=== PATIENT | female | born 1985 | race Caucasian/White ===

== ENCOUNTER 2016-08-06 20:01 | Outpatient (CLI) | payer MEDICAID ==
[~2016-08-06 20:01] MED LIST: BUTA1CAP51 PO; DOXY1TAB3 PO; HYDR-4246 PO; OMEP20CA10 PO; ONDA4TAB7 PO; PREN1TAB73 PO; PROM25TA7 PO
[2016-08-06] MEDS ORDERED: [UNRECOGNIZED DRUG - OTHER] IV ONE (20:15)
[2016-08-06] MEDS ORDERED: D5LR IV ONE (20:15)
[2016-08-06 20:51] LABS: HCT - HEMATOCRIT 33.2 % (36-46); HGB - HEMOGLOBIN 11.4 GM/DL (12-16); MEAN CORPUSCULAR HGB 32.7 UUG (26-34); MEAN CORPUSCULAR HGB CONC(MCHC 34.3 GM/DL (31-37); MEAN CORPUSCULAR VOLUME 95.1 UM3 (80-100); MEAN PLATELET VOLUME 9.3 UM3 (9.4-12.4); RED BLOOD COUNT 3.49 M/MM3 (4.00-5.20); WBC - WHITE BLOOD COUNT 11.3 T/MM3 (4.5-11.0)
[2016-08-06 20:57] LABS: ALBUMIN 3.4 G/DL (3.5-5.0); ALBUMIN/GLOBULIN RATIO 1.1 RATIO (1.1-2.2); ALKALINE PHOSPHATASE 187 U/L (38-126); ALT (SGPT) 32 U/L (9-52); ANION GAP 11 MEQ/L (5-15); AST (SGOT) 14 U/L (14-36); BUN/CREATININE RATIO 12 RATIO (6-26); CALCIUM 9.1 MG/DL (8.4-10.2); CHLORIDE 106 MEQ/L (98-107); CO2 - CARBON DIOXIDE 21 MEQ/L (22-30); CREATININE 0.6 MG/DL (0.7-1.2); GLOMERULAR FILTRATION RATE 117; GLUCOSE 88 MG/DL (65-110); POTASSIUM 3.9 MEQ/L (3.6-5); SODIUM 138 MEQ/L (134-144); TOTAL PROTEIN 6.5 G/DL (6.3-8.2)
[2016-08-06 21:05] LABS: BLOOD, URINE TRACE-INTACT (NEGATIVE); COLOR,URINE YELLOW (YELLOW); LEUKOCYTE ESTERASE ,URINE NEGATIVE (NEGATIVE); NITRITE,URINE NEGATIVE (NEGATIVE); UROBILINOGEN,URINE 0.2 EU/DL (NORMAL)
[2016-08-06] MEDS: DimenhyDRINATE 50 MG in LR 1,000 ML IV SCH ×2 (21:05→21:06)
[2016-08-06] MEDS ORDERED: BUTALBITAL/APAP/CAFFEINE TABLET PO ONE (23:15)
== END 2016-08-07 00:35 | disposition home or self-care (01) ==
LOC: OBOBS 20:01 → MC 20:03 → OBOBS 20:03
PROVIDERS: ATTEND Obstetrics & Gynecology
DX: O21.0 Mild hyperemesis gravidarum (principal); Z3A.35 35 weeks gestation of pregnancy
CPT/HCPCS: 36415; 59025; 80053; 81003; 85027; 96361; 96365; J1240; J7120

== ENCOUNTER 2016-08-15 12:45 | Outpatient (CLI) | payer MEDICAID ==
[~2016-08-15] VITALS: Ht 177.8 cm; Wt 101.4 kg
[2016-08-15] MEDS ORDERED: LR 1,000 ML IV ONE (13:01)
--- NOTE | 2016-08-15 13:03 | PNPDOC ---
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 Spotting. No LOF. Good FM. Nausea is unchanged. Having some diarrhea today. Objective Objective Comments Cvx 1-2/60/-3 [place]- irritability FHT 140, accels, mod siva Assessment Comments Will give her a liter of fluids. Check UA. She already took Benadryl prior to coming in. She has a h/o 34 wk delivery. LISBET SALDIVAR MD August 15, 2016 13:03
[2016-08-15] MEDS ORDERED: ACETAMINOPHEN 500 MG TABLET PO PRN (13:15)
[2016-08-15 13:21] LABS: BLOOD, URINE NEGATIVE (NEGATIVE); COLOR,URINE YELLOW (YELLOW); LEUKOCYTE ESTERASE ,URINE NEGATIVE (NEGATIVE); NITRITE,URINE NEGATIVE (NEGATIVE); UROBILINOGEN,URINE 0.2 EU/DL (NORMAL)
[2016-08-15 13:36] VITALS: TEMP 97.9
[2016-08-15 13:47] VITALS: Ht 177.8 cm; Wt 101.4 kg
[2016-08-15] MEDS ORDERED: TERBUTALINE 1 MG/ML INJECTION SQ ONE (14:45)
[2016-08-15] MEDS ORDERED: DiphenhydrAMINE 25 MG CAPSULE PO ONE (16:00)
== END 2016-08-15 16:18 | disposition home or self-care (01) ==
LOC: OBOBS 12:45 → MC 12:45 → OBOBS 16:18
PROVIDERS: ATTEND Obstetrics & Gynecology
DX: O47.03 False labor before 37 completed weeks of gestation, third trimester (principal); O26.853 Spotting complicating pregnancy, third trimester; Z3A.36 36 weeks gestation of pregnancy
CPT/HCPCS: 59025; 81003; J3105; J7120

== ENCOUNTER 2016-08-19 17:43 | Outpatient (CLI) | payer MEDICAID | END 2016-08-19 18:19 | disposition home or self-care (01) | LOC: MC 17:43 → OBOBS 17:43 | PROVIDERS: ATTEND Obstetrics & Gynecology | DX: O26.893 Other specified pregnancy related conditions, third trimester (principal); N89.8 Other specified noninflammatory disorders of vagina; Z3A.37 37 weeks gestation of pregnancy | CPT/HCPCS: 84112 ==

== ENCOUNTER 2016-08-31 03:15 | Inpatient (IN) | payer BC, MEDICAID ==
[~2016-08-31] VITALS: Ht 177.8 cm; Wt 99.3 kg
[~2016-08-31 03:15] MED LIST changes: -HYDR-4246 PO
[2016-08-31] MEDS ORDERED: LR 1,000 ML IV PRN (04:34)
--- OUTSIDE RECORDS SUMMARY | 2016-08-31 04:36 | XMS REPORT | Continuity of Care Document ---
Author Author [facility]AS [facility] Organization [facility] Address Unknown Phone Unavailable Care Team Providers Care Ballet Teacher Name Role Phone DIONICIO SEGUNDO MD Primary Care Physician [phone] Insurance Providers Guarantor Nancy Strong [address] [place] [address] Email [email or web address] [email or web address] [facility] [place] Plan Policy Number [id number] Subscriber's Name TaeNancy Carter Relationship 18 Self Effective Date 16 Expiration Date 16 Advance Directives Directive Response Recorded Date/Time Advanced Directives Type None 10/10/13 4:23am Ordered Resuscitation Status Full Code 07/12/13 10:54am Resuscitation Documents on File No 10/10/13 4:23am Problems Active Problems Medical Problem Onset Date Status Bradycardia Unknown Resolved Dehydration Unknown Acute Ectopic , tubal Unknown Acute Headache Unknown Acute Hypotension Unknown Resolved Intractable migraine without aura Unknown Migraine Unknown Acute Migraine Unknown Nausea & vomiting Unknown Palpitations Unknown Resolved with 13 completed weeks gestation Unknown with abdominal pain of right lower quadrant, antepartum Unknown Acute Supervision of other normal 10/12/2013 Acute Syncope and collapse Unknown Resolved Thoracic back pain Unknown Acute Vomiting Unknown Acute nausea vomiting of Unknown Acute Surgical Problem Onset Date Status Status post laparoscopy Unknown Acute Past Problems Medical Problem Onset Date Migraine Unknown Migraine equivalent Unknown Nausea & vomiting Unknown Vertigo Unknown Medications Current Home Medications Medication Dose Units Route Directions Days Qty Instructions Start Date Butalb/Acetaminophen/Caffeine (Ktinwi-Soywcbbd-Udaa 50-300-40) 1 Each Capsule 1 Tab Oral As Needed 12/11/15 Doxylamine/Pyridoxine Hcl (Dicena Montalvo 10-10 Mg Tablet) 1 Each Tablet. 1 Tab Oral Bedtime 03/04/16 Hydrocodone/Acetaminophen ([place] 5-325 Tablet) 5-325 Tablet 1-2 Tab Oral Every 4 Hours as needed for Pain 30 Tablet 03/06/16 Omeprazole 20 Mg Capsule. 20 Mg Oral Bedtime Take 1 capsule, by mouth, one time a day (before breakfast). 03/04/16 Ondansetron (Zofran Odt) 4 Mg Tab.rapdis 4 Mg Oral Every 4 Hours Oral Disintegrating Tablet 03/04/16 Pnv95/Ferrous Fumarate/Fa ( Tablet) 1 Each Tablet 1 Tab Oral Daily 90 Tablet 03/04/16 Promethazine Hcl 25 Mg Tablet 25 Mg Oral Every 6 Hours as needed for Nausea 40 03/06/16 Past Home Medications Medication Directions Ordered Status Alprazolam 0.5 Mg Tablet, 0.5 Mg Oral As Needed 12/11/15 Discontinued Doxylamine Succinate (Unisom) 25 Mg Tablet, 25 Mg [place] As Needed for Nausea 07/12/13 Discontinued Hydrocodone Bit/Acetaminophen (Lortab 5) 1 Tab Tablet, 1 Tab Oral for Pain Discontinued Naproxen Sodium (Aleve) 220 Mg Tablet, 220 Mg Oral Twice Daily With Meals as needed for Pain 10/12/13 Discontinued Ondansetron (Ondansetron Odt) 4 Mg/Tab Tab.rapdis, 02/23/13 Discontinued Oxycodone Hcl/Acetaminophen (Percocet 5/325 Tab) 1 Tab Tablet, 1-2 Tab Oral Every 4 Hours as needed for Pain 10/12/13 Discontinued Progesterone,Micronized (Progesterone) 200 Mg Capsule, 250 Mg Intramusc 1 Week as needed for See Comments Below 07/12/13 Discontinued Pyridoxine Hcl (Vitamin B6) 50 Mg Tablet, 50 Mg Oral As Needed for Nausea 11/17 Discontinued Social History Social History Problem Response Recorded Date/Time Onset Date Status Hx Substance Use No 12/11/2015 4:45pm Not Applicable Not Applicable Hx Alcohol Use Y RARELY 12/11/2015 4:45pm Not Applicable Not Applicable Has the pt used tobacco in the last 12 months No 04/07/2016 3:53pm Not Applicable Not Applicable Tobacco Usage none 06/16/2014 2:38pm Not Applicable Not Applicable Query Response Start Date Stop Date Smoking Status Former smoker Hospital Discharge Instructions No hospital discharge instructions. Plan of Care Discharge Date 04/25/16 6:25pm Prescriptions See Medication Section Functional Status No functional status results. Allergies, Adverse Reactions, Alerts Allergen Type Severity Reaction Status Last Updated amoxicillin trihydrate Allergy Unknown HIVES Active 01/29/16 Penicillin Allergy Unknown RESP Active 01/29/16 Ibuprofen Allergy Unknown RESP, HIVES Active 01/29/16 potassium clavulanate Allergy Unknown HIVES Active 01/29/16 Immunizations Query Response on File Recorded Date/Time Hx Influenza Vaccination Y fall 201504/07/16 3:53pm Hx Pneumococcal Vaccination No 04/07/16 3:53pm Hx Influenza Vaccination Y fall 201504/07/16 3:53pm DTaP Vaccine History UNK 12/11/15 4:45pm Influenza Vaccine Hx 01/1903/05/16 12:27pm Vital Signs Acute Vital Signs Vital Response Date/Time Temperature (Fahrenheit) 97.2 deg F (96.8 - 99.1) 04/25/2016 4:52pm Temperature (Calculated Celsius) 36.89611 degrees C (36.0 - 37.3) 04/25/2016 4:52pm Pulse Rate (adult) 86 bpm (60 - 100) 04/25/2016 4:52pm Respiratory Rate 16 breaths/min (10 - 20) 04/25/2016 4:52pm O2 Sat by Pulse Oximetry 100 % (90 - 100) 04/25/2016 4:52pm Oxygen Delivery Method Room Air 04/25/2016 4:52pm Blood Pressure 105/51 mm Hg 04/25/2016 4:52pm Blood Pressure Source Automatic Cuff 04/25/2016 4:52pm Height (Feet) 5 feet 04/07/2016 4:40pm Height (Inches) 10.00 inches 04/07/2016 4:40pm Weight (Kilograms) 94.500 kg 04/07/2016 4:40pm Body Mass Index (BMI) 29.9 04/07/2016 4:40pm Results Laboratory Results Test Name Result Units Flags Reference Collection Date/Time Result Date/ Time Comments Magnesium Level 2.0 MG/DL 1.6-2.3 03/06/2016 7:01am 03/06/2016 7:31am Urine Collection Type CLEANCATCH-MIDSTREAM 2016 2:42pm 2015 3:23pm Urine Amorphous Urates MANY 2016 2:42pm 2016 3:32pm Urine Mucus PRESENT 2016 2:42pm 2016 3:32pm Urine Hyaline Casts 0-1 /LPF 2016 2:42pm 2016 3:32pm White Blood Count 14.5 T/MM3 H 4.5-11.0 04/07/2016 4:26pm 04/07/2016 4: 46pm Red Blood Count 3.75 M/MM3 L 4.00-5.20 04/07/2016 4:pm 04/07/2016 4: 46pm Hemoglobin 12.3 GM/DL 12-16 04/07/2016 4:pm 04/07/2016 4:46pm Hematocrit 35.6 % L 36-46 04/07/2016 4:pm 04/07/2016 4:46pm Mean Corpuscular Volume 94.9 UM3 80-100 04/07/2016 4:pm 04/07/2016 4: 46pm Mean Corpuscular Hemoglobin 32.8 UUG 26-34 04/07/2016 4:pm 2016 4:46pm Mean Corpuscular Hemoglobin Concent 34.6 GM/DL 31-37 04/07/2016 4:pm 04/07/2016 4:46pm RDW Standard Deviation 41.5 FL 36.9-50.2 04/07/2016 4:04/07/2016 4 :46pm Platelet Count 336 T/MM3 130-400 04/07/2016 4:04/07/2016 4:46pm Mean Platelet Volume 9.6 UM3 9.4-12.4 04/07/2016 4:pm 04/07/2016 4: 46pm Neutrophils (%) (Auto) 79.1 % H 33-66 04/07/2016 4:pm 04/07/2016 4: 46pm Lymphocytes (%) (Auto) 15.8 % L 23-45 04/07/2016 4:pm 04/07/2016 4: 46pm Monocytes (%) (Auto) 4.0 % 0-9.0 04/07/2016 4:04/07/2016 4:46pm Eosinophils (%) (Auto) 0.7 % 0-4 04/07/2016 4:pm 04/07/2016 4:46pm Basophils (%) (Auto) 0.1 % 0-2 04/07/2016 4:04/07/2016 4:46pm Immature Granulocyte % (Auto) 0.3 % 0.0-0.5 04/07/2016 4:2016 4:46pm Absolute Neutrophils (auto) 11.5 T/MM3 H 1.8-7.7 04/07/2016 4:pm 04/07 4:46pm Absolute Lymphocytes (auto) 2.3 T/MM3 1-4.8 04/07/2016 4:pm 2016 4:46pm Absolute Monocytes (auto) 0.6 T/MM3 0-0.8 04/07/2016 4:26pm 04/07/2016 4:46pm Absolute Eosinophils (auto) 0.1 T/MM3 0-0.5 04/07/2016 4:pm 2016 4:46pm Absolute Basophils (auto) 0.0 T/MM3 0-0.2 04/07/2016 4:pm 04/07/2016 4:46pm Absolute Immature Granulocyte (auto 0.04 T/MM3 H 0.00-0.03 04/07/2016 4: pm 04/07/2016 4:46pm Icterus Index < 2 0-7 04/07/2016 4:04/07/2016 4:57pm Chemistry Specimen Hemolysis < 15 0-25 04/07/2016 4:pm 04/07/2016 4 :57pm 0-25: Specimen Exhibited No Hemolysis. Turbidity < 20 0-20 04/07/2016 4:pm 04/07/2016 4:57pm Sodium Level 138 MEQ/L 134-144 04/07/2016 4:pm 04/07/2016 4:57pm Potassium Level 4.0 MEQ/L 3.6-5 04/07/2016 4:26pm 04/07/2016 4:57pm Chloride Level 104 MEQ/L 98-107 04/07/2016 4:pm 04/07/2016 4:57pm Carbon Dioxide Level 25 MEQ/L 22-30 04/07/2016 4:04/07/2016 4: 57pm Anion Gap 9 MEQ/L 5-15 04/07/2016 4:04/07/2016 4:57pm Blood Urea Nitrogen 12.0 MG/DL 7-17 04/07/2016 4:04/07/2016 4: 57pm Creatinine 0.7 MG/DL 0.7-1.2 04/07/2016 4:04/07/2016 4:57pm BUN/Creatinine Ratio 17 RATIO 6-04/07/2016 4:04/07/2016 4:57pm Glomerular Filtration Rate Calc 98 04/07/2016 4:pm 04/07/2016 4: 57pm Glucose Level 85 MG/DL 65-110 04/07/2016 4:04/07/2016 4:57pm Calculated Osmolality 265 MOSM/KG 261-280 04/07/2016 4:04/07/2016 4:57pm Calcium Level 9.8 MG/DL 8.4-10.2 04/07/2016 4:04/07/2016 4:57pm Total Bilirubin 0.50 MG/DL 0.20-1.30 04/07/2016 4:pm 04/07/2016 4: 57pm Alkaline Phosphatase 75 U/L 38-126 04/07/2016 4:04/07/2016 4:57pm Total Protein 6.8 G/DL 6.3-8.2 04/07/2016 4:04/07/2016 4:57pm Albumin 3.7 G/DL 3.5-5.0 04/07/2016 4:04/07/2016 4:57pm Globulin 3.1 G/DL 2.4-3.6 04/07/2016 4:04/07/2016 4:57pm Albumin/Globulin Ratio 1.2 RATIO 1.1-2.2 04/07/2016 4:04/07/2016 4 :57pm Aspartate Amino Transf (AST/SGOT) 14 U/L 14-36 04/07/2016 4:2016 4:57pm Alanine Aminotransferase (ALT/SGPT) 18 U/L 9-52 04/07/2016 4:04/07 4:57pm Thyroid Stimulating Hormone (TSH) 1.38 MIU/L 0.47-4.68 04/07/2016 4: 26pm 04/07/2016 5:27pm Urine Color YELLOW YELLOW 04/07/2016 5:25pm 04/07/2016 5:48pm Urine Turbidity SL CLOUDY CLEAR 04/07/2016 5:25pm 04/07/2016 5:48pm Urine Specific [place] 1.020 1.015-1.025 04/07/2016 5:25pm 2016 5:48pm Urine pH 7.0 5.0-8.0 04/07/2016 5:25pm 04/07/2016 5:48pm Urine Leukocyte Esterase NEGATIVE NEGATIVE 04/07/2016 5:25pm 2016 5:48pm Urine Nitrite NEGATIVE NEGATIVE 04/07/2016 5:25pm 04/07/2016 5:48pm Urine Protein NEGATIVE NEGATIVE 04/07/2016 5:25pm 04/07/2016 5:48pm Urine Glucose (UA) NEGATIVE NEGATIVE 04/07/2016 5:25pm 04/07/2016 5: 48pm Urine Ketones 1+ A NEGATIVE 04/07/2016 5:25pm 04/07/2016 5:48pm Urine Urobilinogen 0.2 EU/DL NORMAL 04/07/2016 5:25pm 04/07/2016 5: 48pm Urine Bilirubin NEGATIVE NEGATIVE 04/07/2016 5:25pm 04/07/2016 5: 48pm Urine Blood 1+ A NEGATIVE 04/07/2016 5:25pm 04/07/2016 5:48pm Urine WBC 0-1 /HPF 0-5 04/07/2016 5:25pm 04/07/2016 6:01pm Urine RBC 1-3 /HPF 0-3 04/07/2016 5:25pm 04/07/2016 6:01pm Urine Squamous Epithelial Cells 0-5 04/07/2016 5:25pm 04/07/2016 6: 01pm Urine Bacteria TRACE H NEGATIVE 04/07/2016 5:25pm 04/07/2016 6:01pm Urine Culture Indicated CULT NOT INDICATED 04/07/2016 5:25pm 2016 6:01pm Procedures Procedure Status Date Provider(s) Collect blood from picc Completed 01/29/16 LISBET SALDIVAR MD Comprehen metabolic panel Completed 01/29/16 Urinalysis auto w/o scope Completed 01/29/16 Assay thyroid stim hormone Completed 01/29/16 Complete cbc w/auto diff wbc Completed 01/29/16 Hydrate iv infusion add-on Completed 01/29/16 Ther/proph/diag iv inf init Completed 01/29/16 Tx/pro/dx inj new drug addon Completed 01/29/16 518879"INJECTION, DIMENHYDRINATE, UP TO 50 MG" Completed 01/29/16 196152"INJECTION, METOCLOPRAMIDE HCL, UP TO 10 MG" Completed 01/29/16 505476"RINGERS LACTATE INFUSION, UP TO 1000 CC" Completed 01/29/16 D5LR 1000 ML Completed 01/29/16 Hydrate iv infusion add-on Completed 03/03/16 Hydrate iv infusion add-on Completed 03/03/16 Ther/proph/diag inj iv push Completed 03/03/16 Tx/pro/dx inj new drug addon Completed 03/03/16 606394"INJECTION, PROCHLORPERAZINE, UP TO 10 MG" Completed 03/03/16 935053"INJECTION, ONDANSETRON HYDROCHLORIDE, PER 1 MG" Completed 03/03/16 [id number]"INFUSION, NORMAL SALINE SOLUTION , 1000 CC" Completed 03/03/16 864900"INFUSION, NORMAL SALINE SOLUTION , 1000 CC" Completed 03/03/16 Encounters Encounter Location Arrival[facility] Date [facility] 04/25/16 6:25pm LISBET SALDIVAR MD Registered [facility] 04/07/16 3:38pm SHE BUNCH MD Discharged Inpatient [facility] 03/05/16 4:52pm 03/06/16 10:31am LISBET SALDIVAR MD Registered [facility] 03/03/16 9:37am STEVEN KANG MD Departed [facility] 01/29/16 1:11pm 01/29/16 4:50pm LISBET SALDIVAR MD
--- OUTSIDE RECORDS SUMMARY | 2016-08-31 04:37 | XMS REPORT | Continuity of Care Document ---
Author Author TARAS [facility] Organization [facility] Address Unknown Phone Unavailable Care Team Providers Care Asset Protection Manager Name Role Phone DIONICIO SEGUNDO MD Primary Care Physician [phone] Insurance Providers Guarantor Nancy Strong Address [address], [place] [address] Email [email or web address] Payer [facility] State Plan Policy Number [id number] Subscriber's Name TaeNancy Carter Relationship 18 Self [...] Directions Days Qty Instructions Start Date Butalb/Acetaminophen/Caffeine (Mkuqtc-Pyzaihpk-Vtss 50-300-40) 1 Each Capsule 1 Tab Oral As Needed 12/11/15 Doxylamine/Pyridoxine Hcl (Dicena Montalvo 10-10 Mg Tablet) 1 Each Tablet. 1 Tab Oral Bedtime 03/04/16 Hydrocodone/Acetaminophen ([place] 5-325 Tablet) 5-325 Tablet 1-2 Tab Oral [...] tobacco in the last 12 months No 07/23/2016 10:31am Not Applicable Not Applicable Tobacco Usage none 06/16/2014 2:38pm Not Applicable Not Applicable Query Response Start Date Stop Date Smoking Status Former smoker Hospital Discharge Instructions No hospital discharge instructions. Plan of Care Discharge Date 08/07/16 12:35am Prescriptions See Medication Section Functional Status No functional status results. Allergies, Adverse Reactions, Alerts Allergen Type Severity Reaction Status Last Updated amoxicillin trihydrate Allergy Unknown HIVES Active 01/29/16 Penicillin Allergy Unknown RESP Active 01/29/16 Ibuprofen Allergy Unknown RESP, HIVES Active 01/29/16 potassium clavulanate Allergy Unknown HIVES Active 01/29/16 Immunizations Query Response on File Recorded Date/Time Hx Influenza Vaccination Y fall 201507/23/16 10:31am Hx Pneumococcal Vaccination No 07/23/16 10:31am Hx Influenza Vaccination Y fall 201507/23/16 10:31am DTaP Vaccine History UNK 12/11/15 4:45pm Influenza Vaccine Hx 01/1903/05/16 12:27pm Vital Signs Acute Vital Signs Vital Response Date/Time Temperature (Fahrenheit) 97.4 deg F (96.8 - 99.1) 07/23/2016 10:32am Temperature (Calculated Celsius) 36.59251 degrees C (36.0 - 37.3) 07/23/2016 10:32am Pulse Rate (adult) 98 bpm (60 - 100) 07/23/2016 10:32am Respiratory Rate 16 breaths/min (10 - 20) 07/23/2016 10:32am O2 Sat by Pulse Oximetry 95 % (90 - 100) 07/23/2016 10:32am Oxygen Delivery Method Room Air 07/23/2016 10:32am Blood Pressure 98/58 mm Hg 07/23/2016 10:32am Blood Pressure Source Automatic Cuff 07/23/2016 10:32am Height (Feet) 5 feet 07/23/2016 10:34am Height (Inches) 10.00 inches 07/23/2016 10:34am Weight (Kilograms) 100.000 kg 07/23/2016 10:34am Body Mass Index (BMI) 31.6 07/23/2016 10:34am Results Laboratory Results Test Name Result Units Flags Reference Collection Date/Time Result Date/ Time Comments White Blood Count 11.3 T/MM3 H 4.5-11.0 08/06/2016 8:40pm 08/06/2016 8: 51pm Red Blood Count 3.49 M/MM3 L 4.00-5.20 08/06/2016 8:40pm 08/06/2016 8: 51pm Hemoglobin 11.4 GM/DL L 12-16 08/06/2016 8:40pm 08/06/2016 8:51pm Hematocrit 33.2 % L 36-46 08/06/2016 8:40pm 08/06/2016 8:51pm Mean Corpuscular Volume 95.1 UM3 80-100 08/06/2016 8:40pm 08/06/2016 8: 51pm Mean Corpuscular Hemoglobin 32.7 UUG 26-34 08/06/2016 8:40pm 2016 8:51pm Mean Corpuscular Hemoglobin Concent 34.3 GM/DL 31-37 08/06/2016 8:40pm 08/06/2016 8:51pm RDW Standard Deviation 39.8 FL 36.9-50.2 08/06/2016 8:40pm 08/06/2016 8 :51pm Platelet Count 349 T/MM3 130-400 08/06/2016 8:40pm 08/06/2016 8:51pm Mean Platelet Volume 9.3 UM3 L 9.4-12.4 08/06/2016 8:40pm 08/06/2016 8: 51pm Icterus Index < 2 0-7 08/06/2016 8:40pm 08/06/2016 8:57pm Chemistry Specimen Hemolysis < 15 0-25 08/06/2016 8:40pm 08/06/2016 8 :57pm 0-25: Specimen Exhibited No Hemolysis. Turbidity < 20 0-20 08/06/2016 8:40pm 08/06/2016 8:57pm Sodium Level 138 MEQ/L 134-144 08/06/2016 8:40pm 08/06/2016 8:57pm Potassium Level 3.9 MEQ/L 3.6-5 08/06/2016 8:40pm 08/06/2016 8:57pm Chloride Level 106 MEQ/L 98-107 08/06/2016 8:40pm 08/06/2016 8:57pm Carbon Dioxide Level 21 MEQ/L L 22-30 08/06/2016 8:40pm 08/06/2016 8: 57pm Anion Gap 11 MEQ/L 5-15 08/06/2016 8:40pm 08/06/2016 8:57pm Blood Urea Nitrogen 7.0 MG/DL 7-17 08/06/2016 8:40pm 08/06/2016 8:57pm Creatinine 0.6 MG/DL L 0.7-1.2 08/06/2016 8:40pm 08/06/2016 8:57pm BUN/Creatinine Ratio 12 RATIO 6-26 08/06/2016 8:40pm 08/06/2016 8:57pm Glomerular Filtration Rate Calc 117 08/06/2016 8:40pm 08/06/2016 8: 57pm Glucose Level 88 MG/DL 65-110 08/06/2016 8:40pm 08/06/2016 8:57pm Calculated Osmolality 263 MOSM/KG 261-280 08/06/2016 8:40pm 08/06/2016 8:57pm Calcium Level 9.1 MG/DL 8.4-10.2 08/06/2016 8:40pm 08/06/2016 8:57pm Total Bilirubin 0.30 MG/DL 0.20-1.30 08/06/2016 8:40pm 08/06/2016 8: 57pm Alkaline Phosphatase 187 U/L H 38-126 08/06/2016 8:40pm 08/06/2016 8: 57pm Total Protein 6.5 G/DL 6.3-8.2 08/06/2016 8:40pm 08/06/2016 8:57pm Albumin 3.4 G/DL L 3.5-5.0 08/06/2016 8:40pm 08/06/2016 8:57pm Globulin 3.1 G/DL 2.4-3.6 08/06/2016 8:40pm 08/06/2016 8:57pm Albumin/Globulin Ratio 1.1 RATIO 1.1-2.2 08/06/2016 8:40pm 08/06/2016 8 :57pm Aspartate Amino Transf (AST/SGOT) 14 U/L 14-36 08/06/2016 8:40pm 2016 8:57pm Alanine Aminotransferase (ALT/SGPT) 32 U/L 9-52 08/06/2016 8:40pm 08/06 8:57pm Urine Collection Type CLEANCATCH-MIDSTREAM 08/06/2016 8:49pm 2016 9:05pm Urine Color YELLOW YELLOW 08/06/2016 8:49pm 08/06/2016 9:05pm Urine Turbidity CLEAR CLEAR 08/06/2016 8:49pm 08/06/2016 9:05pm Urine Specific [place] 1.010 L 1.015-1.025 08/06/2016 8:49pm 2016 9:05pm Urine pH 7.0 5.0-8.0 08/06/2016 8:49pm 08/06/2016 9:05pm Urine Leukocyte Esterase NEGATIVE NEGATIVE 08/06/2016 8:49pm 2016 9:05pm Urine Nitrite NEGATIVE NEGATIVE 08/06/2016 8:49pm 08/06/2016 9:05pm Urine Protein NEGATIVE NEGATIVE 08/06/2016 8:49pm 08/06/2016 9:05pm Urine Glucose (UA) NEGATIVE NEGATIVE 08/06/2016 8:49pm 08/06/2016 9: 05pm Urine Ketones NEGATIVE NEGATIVE 08/06/2016 8:49pm 08/06/2016 9:05pm Urine Urobilinogen 0.2 EU/DL NORMAL 08/06/2016 8:49pm 08/06/2016 9: 05pm Urine Bilirubin NEGATIVE NEGATIVE 08/06/2016 8:49pm 08/06/2016 9: 05pm Urine Blood TRACE-INTACT A NEGATIVE 08/06/2016 8:49pm 08/06/2016 9: 05pm Urinalysis Comment MICROSCOPIC NOT IND. 08/06/2016 8:49pm 2016 9:05pm Procedures No known history of procedures. Encounters Encounter Location Arrival/Admit Date Discharge/Depart Date Attending Provider Departed Clinic [facility] 08/06/16 8:01pm 08/07/16 12:35am LISBET SALDIVAR MD Registered Recurring [facility] 07/23/16 10:09am STEVEN KANG MD
--- OUTSIDE RECORDS SUMMARY | 2016-08-31 04:37 | XMS REPORT | Continuity of Care Document ---
Author Author TARAS [facility] Organization [facility] Address Unknown Phone Unavailable Care Team Providers Care Ramp Attendant Name Role Phone DIONICIO SEGUNDO MD Primary Care Physician [phone] Insurance Providers Guarantor Nancy Strong Address [address] [address] Email [email or web address] [facility] State Plan Policy Number [id number] Subscriber's Name TaeNancy Carter Relationship 18 Self Effective Date 16 Expiration Date 16 Advance Directives Directive Response Recorded Date/Time Advanced Directives Type None 10/10/13 4:23am Ordered Resuscitation Status Full Code 07/12/13 10:54am Resuscitation Documents on File No 10/10/13 4:23am DPOA for Healthcare Only No 08/15/16 1:49pm Living Will No 08/15/16 1:49pm Problems Active Problems Medical Problem Onset Date [...] Directions Days Qty Instructions Start Date Butalb/Acetaminophen/Caffeine (Ifyzes-Hghnqotg-Bfil 50-300-40) 1 Each Capsule 1 Tab Oral As Needed 12/11/15 Doxylamine/Pyridoxine Hcl (Juan Carlos Montalvo 10-10 Mg Tablet) 1 Each Tablet. 1 Tab Oral Bedtime 03/04/16 Hydrocodone/Acetaminophen ([place] 5-325 Tablet) 5-325 Tablet 1-2 Tab Oral [...] used tobacco in the last 12 months Yes 08/15/2016 1:51pm Not Applicable Not Applicable Tobacco Usage none 06/16/2014 2:38pm Not Applicable Not Applicable Query Response Start Date Stop Date Smoking Status Former smoker Hospital Discharge Instructions No hospital discharge instructions. Plan of Care Discharge Date 08/15/16 4:18pm Prescriptions See Medication Section Functional Status Query Response Date Recorded Ability to complete ADL's impeded by No change August 15, 2016 1:49pm Allergies, Adverse Reactions, Alerts Allergen Type Severity Reaction Status Last Updated amoxicillin trihydrate Allergy Unknown HIVES Active 01/29/16 Penicillin Allergy Unknown RESP Active 01/29/16 Ibuprofen Allergy Unknown RESP, HIVES Active 01/29/16 potassium clavulanate Allergy Unknown HIVES Active 01/29/16 Immunizations Query Response on File Recorded Date/Time Hx Influenza Vaccination Yes 08/15/16 1:51pm Hx Pneumococcal Vaccination No 08/15/16 1:51pm Hx Influenza Vaccination Yes 08/15/16 1:51pm DTaP Vaccine History UNK 12/11/15 4:45pm Influenza Vaccine Hx 01/1903/05/16 12:27pm Vital Signs Acute Vital Signs Vital Response Date/Time Temperature (Fahrenheit) 97.9 deg F (96.8 - 99.1) 08/15/2016 1:36pm Temperature (Calculated Celsius) 36.59342 degrees C (36.0 - 37.3) 08/15/2016 1:36pm Pulse Rate (adult) 98 bpm (60 - 100) 07/23/2016 10:32am Respiratory Rate 16 breaths/min (10 - 20) 07/23/2016 10:32am O2 Sat by Pulse Oximetry 95 % (90 - 100) 07/23/2016 10:32am Oxygen Delivery Method Room Air 08/15/2016 1:36pm Blood Pressure 98/58 mm Hg 07/23/2016 10:32am Blood Pressure Source Automatic Cuff 07/23/2016 10:32am Height (Feet) 5 feet 08/15/2016 1:47pm Height (Inches) 10.00 inches 08/15/2016 1:47pm Weight (Kilograms) 101.360 kg 08/15/2016 1:47pm Body Mass Index (BMI) 32.1 08/15/2016 1:47pm Results Laboratory Results Test Name Result Units [...] 8:40pm 08/06 8:57pm Urine Collection Type CLEANCATCH-MIDSTREAM 08/15/2016 1:17pm 2016 1:21pm Urine Color YELLOW YELLOW 08/15/2016 1:17pm 08/15/2016 1:21pm Urine Turbidity SL CLOUDY CLEAR 08/15/2016 1:17pm 08/15/2016 1:21pm Urine Specific [place] 1.010 L 1.015-1.025 08/15/2016 1:17pm 2016 1:21pm Urine pH 7.0 5.0-8.0 08/15/2016 1:17pm 08/15/2016 1:21pm Urine Leukocyte Esterase NEGATIVE NEGATIVE 08/15/2016 1:17pm 2016 1:21pm Urine Nitrite NEGATIVE NEGATIVE 08/15/2016 1:17pm 08/15/2016 1:21pm Urine Protein NEGATIVE NEGATIVE 08/15/2016 1:17pm 08/15/2016 1:21pm Urine Glucose (UA) NEGATIVE NEGATIVE 08/15/2016 1:17pm 08/15/2016 1: 21pm Urine Ketones NEGATIVE NEGATIVE 08/15/2016 1:17pm 08/15/2016 1:21pm Urine Urobilinogen 0.2 EU/DL NORMAL 08/15/2016 1:17pm 08/15/2016 1: 21pm Urine Bilirubin NEGATIVE NEGATIVE 08/15/2016 1:17pm 08/15/2016 1: 21pm Urine Blood NEGATIVE NEGATIVE 08/15/2016 1:17pm 08/15/2016 1:21pm Urinalysis Comment MICROSCOPIC NOT IND. 08/15/2016 1:17pm 2016 1:21pm Procedures No known history of procedures. Encounters Encounter Location Arrival/Admit Date Discharge/Depart Date Attending Provider Departed [facility] 08/15/16 12:45pm 08/15/16 4:18pm LISBET SALDIVAR MD Departed [facility] 08/06/16 8:01pm 08/07/16 12:35am LISBET SALDIVAR MD Registered [facility] 07/23/16 10:09am STEVEN KANG MD
--- OUTSIDE RECORDS SUMMARY | 2016-08-31 04:37 | XMS REPORT | Continuity of Care Document ---
Author Author [facility] Organization [facility] Address Unknown Phone Unavailable Care Team Providers Care Pattern Data Operator Name Role Phone DIONICIO SEGUNDO MD Primary Care Physician [phone] Insurance Providers Guarantor Nancy Strong Address [address] [address] Email [email or web address] Payer [facility] [place] [employer] Policy Number [id number] Subscriber's Name TaeNancy Carter Relationship 19 Self [...] Directions Days Qty Instructions Start Date Butalb/Acetaminophen/Caffeine (Idbhuc-Vdggbafs-Khlp 50-300-40) 1 Each Capsule 1 Tab Oral As Needed 12/11/15 Doxylamine/Pyridoxine Hcl (Dicena Montalvo 10-10 Mg Tablet) 1 Each Tablet. 1 Tab Oral Bedtime 03/04/16 Hydrocodone/Acetaminophen (Laie 5-325 Tablet) 5-325 Tablet 1-2 Tab Oral [...] discharge instructions. Plan of Care Discharge Date 08/19/16 6:19pm Prescriptions See Medication Section Functional Status No [...] - 99.1) 08/15/2016 1:36pm Temperature (Calculated Celsius) 36.02488 degrees C (36.0 - 37.3) 08/15/2016 1:36pm [...] CLEAR 08/15/2016 1:17pm 08/15/2016 1:21pm Urine Specific Bern 1.010 L 1.015-1.025 08/15/2016 1:17pm 2016 1:21pm [...] NOT IND. 08/15/2016 1:17pm 2016 1:21pm Procedures Procedure Status Date Provider(s) Routine venipuncture Completed 08/06/16 non-stress test Completed 08/06/16 Comprehen metabolic panel Completed 08/06/16 Urinalysis auto w/o scope Completed 08/06/16 Complete cbc automated Completed 08/06/16 Hydrate iv infusion add-on Completed 08/06/16 Ther/proph/diag iv inf init Completed 08/06/16 669845"INJECTION, DIMENHYDRINATE, UP TO 50 MG" Completed 08/06/16 824460"RINGERS LACTATE INFUSION, UP TO 1000 CC" Completed 08/06/16 non-stress test Completed 08/15/16 Urinalysis auto w/o scope Completed 08/15/16 421168"INJECTION, TERBUTALINE SULFATE, UP TO 1 MG" Completed 08/15/16 510870"RINGERS LACTATE INFUSION, UP TO 1000 CC" Completed 08/15/16 Encounters Encounter Location Arrival/Admit Date [facility] 08/19/16 6:19pm LISBET SALDIVAR MD [facility] 08/15/16 12:45pm 08/15/16 4:18pm [facility] 8[facility] 08/07/16 12:35am LISBET SALDIVAR MD Registered [facility] 07/23/16 10:09am STEVEN KANG MD
[2016-08-31] MEDS ORDERED: LIDOCAINE 1% (10mg/ml) 2ml SDV ID PRN (04:45)
[2016-08-31] MEDS ORDERED: CALCIUM CARBONATE 500mg Chewable TAB PO PRN ×2 (04:45→11:00)
[2016-08-31] MEDS ORDERED: ACETAMINOPHEN 500 MG TABLET PO PRN ×2 (04:45→11:00)
[2016-08-31] MEDS ORDERED: MAG-AL + SIM LIQUID 30 ML UDC PO PRN ×2 (04:45→11:00)
[2016-08-31 04:55] VITALS: BP 112/53; PULSE 79; RESP 16; TEMP 97.6
[2016-08-31 04:57] LABS: HCT - HEMATOCRIT 33.9 % (36-46); HGB - HEMOGLOBIN 11.6 GM/DL (12-16); MEAN CORPUSCULAR HGB 32.3 UUG (26-34); MEAN CORPUSCULAR HGB CONC(MCHC 34.2 GM/DL (31-37); MEAN CORPUSCULAR VOLUME 94.4 UM3 (80-100); MEAN PLATELET VOLUME 9.7 UM3 (9.4-12.4); RED BLOOD COUNT 3.59 M/MM3 (4.00-5.20); WBC - WHITE BLOOD COUNT 15.1 T/MM3 (4.5-11.0)
--- NOTE | 2016-08-31 06:21 | ANESOB ---
Epidural/ Date/Time DATE: 08/31/16 TIME: 0510 Preop Diagnosis Procedure: Labor Epidural Plan: Epidural Height: 5 ' 10.00 " Weight: 99.310 kg BMI: kg/m2 P:2 Medications & Allergies Inpatient Medications Current Medications Medications (Trade) Dose Ordered Sig/Yris Start Time Stop Time Status Last Admin Dose Admin Lidocaine HCl 0.2 mg 0.2 mg PRN PRN 08/31/16 04:45 Lactated Ringer's (Lactated Ringers) 1,000 ml @ 0 mls/hr Q0M PRN 08/31/16 04:34 Acetaminophen (Tylenol Extra Strength) 1-2 TABS = 500-1,000 MG Q4H PRN 08/31/16 04:45 Al Hydroxide/Mg Hydroxide (Maalox) 30 ml Q4H PRN 08/31/16 04:45 Calcium Carbonate (TUMS Regular Strength) 1-2 TABS Q2H PRN 08/31/16 04:45 Butalb/Acetaminophen/Caffeine (Mhppfe-Hcazpwcg-Ghvi 50-300-40) 1 Each Capsule, 1 TAB PO PRN, (Reported) Last Taken: on Unknown Date & Time Doxylamine/Pyridoxine HCl (Diclegis Dr 10-10 mg Tablet) 1 Each Tablet.dr, 1 TAB PO HS, (Reported) Last Taken: on 08/22/162099 Omeprazole (Omeprazole) 20 Mg Capsule.dr, 20 MG PO HS, (Reported) Take 1 capsule, by mouth, one time a day (before breakfast). Last Taken: on Unknown Date & Time Ondansetron (Zofran Odt) 4 Mg Tab.rapdis , 4 MG PO Q4HR, (Reported) Oral Disintegrating Tablet Last Taken: on 08/30/16 1800 Pnv95/Ferrous Fumarate/FA ( Tablet) 1 Each Tablet, 1 TAB PO DAILY, (Reported) Last Taken: on 08/30/16 1800 Promethazine HCl (Promethazine HCl) 25 Mg Tablet, 25 MG PO Q6H PRN for NAUSEA Last Taken: on Unknown Date & Time Coded Allergies: Penicillins (Verified Allergy, Unknown, RESP, 01/29/16) amoxicillin trihydrate (Verified Allergy, Unknown, HIVES, 01/29/16) ibuprofen (Verified Allergy, Unknown, RESP, HIVES, 01/29/16) potassium clavulanate (Verified Allergy, Unknown, HIVES, 01/29/16) Medical/Surgical History Anesthesia PMH: Reports: Reflux (WHILE ), Denies: *Diabetes, * Hypertension, *IN, Anesthesia Reactions, Asthma, Bld Transfusion Reaction, CHF, COPD, CVA/Stroke/TIA, Cancer, Glaucoma, Hiatal Hernia, Malignant Hyperthermia, Pacemaker, Pneumonia, Seizures Smoking Status: Current every day smoker Does patient use chewing tobac: No Substance Use Type: does not use Alcohol Intake: none Anesthesia Adverse Reactions: FOUND none Family Hx of Anesthesia Advers: none Hx of Motion Sickness: No Complications During : Yes (placenta previa- resolved earlier in ) Pertinent Findings Laboratory Tests 08/31/16 04:50 Physical Exam Respiratory: Lungs clear Cardiovascular: Regular rate, rhythm Airway Assessment Mallampati Score: II TMD: 3 Fingerbreadths Neck Extension: Good Overall Assessment: May Be Diff Mask Vent., May Be Diff Intubation ASA: 2 Discussion Discussed risks/options/alternatives of anesthesia. Patient consents. Nursing pain assessment noted. Present for Discussion: Present: Parent, Spouse Attestation Statement Prior to the delivery of any anesthetic medication, I examined the patient, developed the plan, obtained the patient's consent and discussed the risk and benefits of the procedure with the patient/guardian. If the note happens to be signed after anesthesia start time, it is only due to providing efficient care of the patient and documenting at a time when the computer is available. DOLORES KELLY CRNA August 31, 2016 06:21
[2016-08-31] MEDS ORDERED: ONDANSETRON 4mg/2ml INJECTION IV PRN (06:30)
[2016-08-31] MEDS ORDERED: NALOXONE 0.4mg/ml INJECTION IV PRN (06:30)
[2016-08-31] MEDS ORDERED: DiphenhydrAMINE 50 MG/ML INJECTION IV PRN (06:30)
[2016-08-31] MEDS ORDERED: ROPIVACAINE 1% 200 MG, SUFENTANIL 50 MCG in NORMAL SALINE 80 ML EPI PRN (06:30)
[2016-08-31] MEDS ORDERED: D5LR 1,000 ML IV PRN (08:45)
[2016-08-31] MEDS ORDERED: OXYTOCIN 30 UNIT in D5LR 500 ML PRN (08:45)
[2016-08-31] MEDS ORDERED: OXYTOCIN 30 UNIT in D5W 500 ML IV ONE (10:51)
[2016-08-31] MEDS ORDERED: OXYTOCIN 30 UNIT in D5LR 500 ML IV ONE (10:51)
[2016-08-31] MEDS ORDERED: IBUPROFEN 800 MG TABLET PO PRN (11:00)
[2016-08-31] MEDS ORDERED: PHENYLEPHRINE RECTAL SUPPOSITORY RECTALLY PRN (11:00)
[2016-08-31] MEDS ORDERED: DiphenhydrAMINE 25 MG CAPSULE PO PRN (11:00)
[2016-08-31] MEDS ORDERED: HYDROCORTISONE 2.5% CREAM 30 GM RECTALLY PRN (11:00)
[2016-08-31] MEDS ORDERED: MILK OF MAGNESIA 30 ML SUSP PO PRN (11:00)
--- NOTE | 2016-08-31 11:33 | LDNF ---
DATE OF DELIVERY: 08/31/2016 DIAGNOSES 1. 31-year-old white female G4, P2 at 38.5 weeks gestational age. 2. Spontaneous labor. 3. Artificial rupture of membranes. 4. Pitocin augmentation. 5. Spontaneous vaginal delivery. 6. Nuchal cord x 1. 7. Female infant, 8/9 Apgars, 3692 g (8 pounds 2.2 ounces) (Vickie). 8. First-degree perineal and left labial laceration - repaired. DESCRIPTION This is a patient of Dr. Gil who was scheduled for an induction two days from now. 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 Her cervix changed from 3.5 to 4.5 so she was admitted. Then she underwent an epidural block. Four hours later there was no cervical change so I did an artificial rupture of membranes and started Pitocin. Pitocin reached a maximum of 10 milliunits/ minute. She progressed in labor to 7 cm and complete dilation. Spontaneous vaginal delivery occurred from the OA position. Infant was bulb suctioned after delivery of the head and then again after delivery of the body. There was a nuchal cord x 1 that was delivered through and then I let the cord drain for about a minute and half before I clamped and cut it. Infant was initially placed on mother's abdomen. Placenta delivered spontaneously and was intact. Perineum had a first-degree perineal laceration and a left labial laceration that were both repaired with 3-0 chromic. EBL was 250. Maternal blood type is A+, rubella is immune and GBS status is negative. At time of dictation mother and infant are doing well. [facility]
[2016-08-31] MEDS: HYDROCODONE/APAP 5 mg/325 mg TABLET PO PRN ×3 (13:27→19:09)
[2016-08-31 15:00] VITALS: BP 103/59; PULSE 66; RESP 18; TEMP 98; O2SAT 98
--- NOTE | 2016-08-31 15:20 | NUR ---
Progress Note RN to room for routine VS. Pt sleeping in bed, baby in nursery. Pt awoken for VS and assessment. VSS, fundus firm @ umbilicus, small lochia noted on ice pack. Pitocin infused and IVSL. Pt rates pain @ 7. 1 [place] admin. PO as ordered. Pt desires to rest, lights turned down. Ice water at bedside. Side rails up X2 and call mcallister in reach. Will continue to monitor per plan of care.
[2016-08-31] MEDS ORDERED: OMEPRAZOLE 20 MG CAPSULE PO SCH (22:00)
[2016-08-31 22:45] VITALS: BP 105/53; PULSE 65; RESP 18; TEMP 97.8; O2SAT 99
--- NOTE | 2016-09-01 01:02 | NUR ---
Chart Check 24 hour chart check completed
--- NOTE | 2016-09-01 01:02 | NUR ---
Shift Summary Pt's VS stable. Fundus firm, minimal lochia, and voiding w/o difficulty. Pt tolerating po fluids and regular diet. IVSL. Pt providing cares for self and baby with help of FOB at bedside. Pt showered on this shift. Pain controlled with po pain meds as ordered, [place]. Pt up ad srinivasan in room. Heated rice bag given PRN for abdominal cramping. Pt attentive to infant needs and bonding appropriately. Call mcallister in reach. Will continue to monitor per plan of care.
[2016-09-01 06:01] LABS: HCT - HEMATOCRIT 32.6 % (36-46); HGB - HEMOGLOBIN 10.8 GM/DL (12-16); MEAN CORPUSCULAR HGB 31.7 UUG (26-34); MEAN CORPUSCULAR HGB CONC(MCHC 33.1 GM/DL (31-37); MEAN CORPUSCULAR VOLUME 95.6 UM3 (80-100); MEAN PLATELET VOLUME 9.6 UM3 (9.4-12.4); RED BLOOD COUNT 3.41 M/MM3 (4.00-5.20); WBC - WHITE BLOOD COUNT 12.7 T/MM3 (4.5-11.0)
[2016-09-01 07:33] VITALS: BP 103/59; PULSE 75; RESP 16; TEMP 97.9
[2016-09-01] MEDS ORDERED: DOCUSATE CALCIUM 240 MG CAPSULE PO SCH (09:00)
--- NOTE | 2016-09-01 09:18 | ANESPO ---
Post-Op Note Date 09/01/16 Time: 09:15 Status Pt Participated in Evaluation: Pt participated in person Vital Signs Date Time Temp Pulse Resp B/P Pulse Ox O2 Delivery O2 Flow Rate FiO2 09/01/16 07:33 97.9 75 16 103/59 08/31/16 22:45 99 Room Air Respiratory Function: Airway patent, Regular respirations Cardiovascular Function: Regular pulse Mental Status: Alert/oriented Pain Level Intensity: 0 (denies) Unable to Assess Pain Due To: Pt Sleeping Hydration: Taking po fluids Complications during Recovery None apparent Follow-Up Instructions Instructions Per Surgeon SANDRA GOULD CRNA September 01, 2016 09:18
--- NOTE | 2016-09-01 11:16 | NUR ---
CM CONSULT: MAGUE. THIS WORKER SPOKE WITH RN ABOUT THIS; NO CURRENT CONCERNS. BOTH MOM AND BABY WILL HAVE MEDICAL FOLLOW UP NEEDED. THIS WORKER SPOKE WITH MOTHER (NANCY). INTRODUCED SELF, EXPLAINED ROLE, PROVIDED CONTACT INFO. BABY IS NAMED COLLIN. NANCY STATED SHE AND FOB (JAVIER) LIVE IN [place], AND NANCY'S AND BABY'S DC PLAN IS TO RETURN HOME. NANCY STATED THEY ARE PREPARED FOR BABY (I.E., THEY HAVE A CRIB, CAR SEAT, SUPPLIES, ETC). NANCY SAID SHE HAS BOUGHT A BREAST PUMP. 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 WELLER, SINCE NANCY'S OTHER DAUGHTER SEES HIM ALSO. SHE SAID SHE HAD NO DC NEEDS/QUESTIONS/CONCERNS FOR THIS WORKER. ENCOURAGED HER TO CALL IF QUESTIONS/NEEDS DO ARISE. Addendum: 09/01/16 at 1122 by VERONICA COHEN Amended: Links added.
[2016-09-01] MEDS ORDERED: OXYCODONE/APAP 5mg/325mg TABLET PO PRN (12:15)
[2016-09-01 14:26] VITALS: BP 111/61; PULSE 71; RESP 16; TEMP 97.8
--- NOTE | 2016-09-01 15:56 | PNPDOC ---
MC Prog Note 09/01/16 vss af desires dc doing better on percocet for pain q&a f/u 5-6 wks JAMILA CABRERA MD September 01, 2016 15:56
[2016-09-01] MEDS ORDERED: OXYC1TAB8 PO (16:00)
--- NOTE | 2016-09-01 16:30 | NUR ---
DISCHARGE: Assessment completed as charted. PT up ad srinivasan, performing own personal cares, voiding and consuming general diet. Percocet Rx and Discharge teaching discusses and provided. Pt verbalizes understanding to all teaching. RN escorts pt to private vehicle. Pt dc'd to home.
--- NOTE | 2016-09-02 14:00 | NUR ---
CM FOLLOW UP CALL LEFT MESSAGE WITH PT.
== END 2016-09-01 16:30 | disposition home or self-care (01) | DRG 775 ==
LOC: OBOBS 03:15 → MC 03:15 → OBOBS 04:30
PROVIDERS: ADMIT Obstetrics & Gynecology; ATTEND Obstetrics & Gynecology
PROC: 10E0XZZ Delivery of Products of Conception, External Approach (ICD-10-PCS; principal; 2016-08-31)
PROC: 0UQMXZZ Repair Vulva, External Approach (ICD-10-PCS; 2016-08-31)
PROC: 10907ZC Drainage of Amniotic Fluid, Therapeutic from Products of Conception, Via Natural or Artificial Opening (ICD-10-PCS; 2016-08-31)
PROC: 0HQ9XZZ Repair Perineum Skin, External Approach (ICD-10-PCS; 2016-08-31)
DX: O69.81X0 Labor and delivery complicated by cord around neck, without compression, not applicable or unspecified (principal); O70.0 First degree perineal laceration during delivery; Z3A.38 38 weeks gestation of pregnancy; Z37.0 Single live birth; O99.02 Anemia complicating childbirth; D64.9 Anemia, unspecified; O99.344 Other mental disorders complicating childbirth; F32.9 Major depressive disorder, single episode, unspecified; K58.9 Irritable bowel syndrome, unspecified
CPT/HCPCS: 36415; 85027